=== PATIENT | female | born 1965 | race Caucasian/White ===

== ENCOUNTER 2020-08-22 16:12 | Emergency (ER) | payer OTHER ==
[~2020-08-22] VITALS: Ht 157.5 cm; Wt 72.3 kg
[2020-08-22 17:21] VITALS: BP 150/100
[2020-08-22] MEDS ORDERED: METHOCARBAMOL 500 MG TABLET PO ONE (17:30)
[2020-08-22] MEDS ORDERED: KETOROLAC TROMETHAMINE 10 MG TABLET PO ONE (17:30)
== END 2020-08-22 18:47 | disposition home or self-care (01) ==
LOC: EMS 16:15
DX: S80.02XA Contusion of left knee, initial encounter (principal); S16.1XXA Strain of muscle, fascia and tendon at neck level, initial encounter; W19.XXXA Unspecified fall, initial encounter; Y93.89 Activity, other specified; Y92.89 Other specified places as the place of occurrence of the external cause; Y99.8 Other external cause status